=== PATIENT | female | born 1955 | race Caucasian/White ===

== ENCOUNTER → 2017-04-10 | Outpatient (CLI) | payer OTHER ==
--- NOTE | 2017-04-10 14:03 | MR ---
EXAMINATION TYPE: MR shoulder RT wo con DATE OF EXAM: 04/10/2017 COMPARISON: NONE HISTORY: Injury of right rotator cuff TECHNIQUE: Multiplanar, multisequence imaging of the right shoulder is performed without contrast. FINDINGS: Rotator Cuff: There is a partial full-thickness tear of the rotator cuff involving the supraspinatus tendon. Abnormal thickening and increased signal within the rotator cuff compatible with tendinosis. Acromioclavicular Joint: There is some arthropathy change. Distal acromion is downturned shows an ass ociated spur Glenohumeral Joint: Intact Labrum: The labrum appears grossly intact given limitation of non-arthrogram study. Biceps Tendon: The long head of biceps is in normal location within bicipital groove. Some fluid sign al courses along the tendon. Bone marrow signal: Some present within the humeral head. Other: There is a joint effusion, fluid in the subacromial subdeltoid bursa. IMPRESSION: Are sharp Rotator cuff. Correlate for impingement. Additional findings above.
== END | disposition home or self-care (01) ==
LOC: RADMRIMAIN 09:20
PROVIDERS: ATTEND Family Medicine
DX: M75.111 Incomplete rotator cuff tear or rupture of right shoulder, not specified as traumatic (principal); M12.811 Other specific arthropathies, not elsewhere classified, right shoulder

== ENCOUNTER 2020-06-03 03:00 | Inpatient (IN) | payer OTHER ==
--- NOTE | 2020-06-03 03:03 | ED ---
Recheck HPI - General Stated Complaint: Abdominal pain Time Seen by Provider: 06/03/20 03:02 Source: RN notes reviewed, old records reviewed Mode of arrival: EMS Limitations: no limitations - History of Present Illness Initial Comments: This is a 64-year-old female to the ER for evaluation presents today for evaluation of abdominal pain epigastric right upper quadrant abdominal pain patient is accepted in transfer for high likelihood of cholecystitis. Patient pain is mildly improved here in the ER, no fevers. Otherwise no travel history or sick contacts. Patient has no significant history of surgical MD Complaint: abnormal lab, other (Cholecystitis at prior hospital) -: hour(s) Returns Today for: needs IV antibiotics, persistent/worsening pain related to initial visit Symptoms Since Prior Visit: worsening pain (Pain is improving on arrival to ER in transfer) Context: other (Patient diagnoses of high likelihood of cholecystitis in transfer) Associated Symptoms: nausea, abdominal pain Treatments Prior to Arrival: Given Antibiotics on, Given Pain Meds on - Related Data Home Medications Medication Instructions Recorded Confirmed Ascorbic Acid [Vitamin C] 2,000 mg PO DAILY 06/03/20 06/03/20 Cyanocobalamin (Vitamin B-12) 1,000 mcg PO DAILY 06/03/20 06/03/20 [Vitamin B-12] Ergocalciferol [Vitamin D2 (1250 1,250 mcg PO TU 06/03/20 06/03/20 Mcg = 51670 Iu)] Ferrous Sulfate [Iron (65 MG 325 mg PO DAILY 06/03/20 06/03/20 Elemental)] Pedi Multivit No.25/Folic Acid 1,200 mcg PO DAILY 06/03/20 06/03/20 [Flintstones Multivit Chew Tab] buPROPion HCL [Wellbutrin XL] 300 mg PO DAILY 06/03/20 06/03/20 buPROPion XL [Wellbutrin XL] 150 mg PO DAILY 06/03/20 06/03/20 Previous Rx's Medication Instructions Recorded Acetaminophen Tab [Tylenol Tab] 1,000 mg PO Q6HR PRN #30 tablet 06/04/20 Levofloxacin [Levaquin] 750 mg PO DAILY 1 Days #7 tab 06/05/20 metroNIDAZOLE [Flagyl] 500 mg PO QID #28 tab 06/05/20 Allergies Allergy/AdvReac Type Severity Reaction Status Date / Time Penicillins Allergy Rash/Hives Verified 06/03/20 06:42 lactose AdvReac Nausea Verified 06/04/20 12:45 Review of Systems ROS Statement: Those systems with pertinent positive or pertinent negative responses have been documented in the HPI. ROS Other: All systems not noted in ROS Statement are negative. Past Medical History - Past Family History Father Family Medical History: Cancer Additional Family Medical History / Comment(s): Father from [place] lymphoma Mother Family Medical History: Dementia, Diabetes Mellitus Additional Family Medical History / Comment(s): Mother is living General Exam General appearance: alert, in no apparent distress Head exam: Present: atraumatic, normocephalic, normal inspection Eye exam: Present: normal appearance, PERRL, EOMI. Absent: scleral icterus, conjunctival injection, periorbital swelling ENT exam: Present: normal exam, mucous membranes moist Neck exam: Present: normal inspection. Absent: tenderness, meningismus, lymphadenopathy Respiratory exam: Present: normal lung sounds bilaterally. Absent: respiratory distress, wheezes, rales, rhonchi, stridor Cardiovascular Exam: Present: regular rate, normal rhythm, normal heart sounds. Absent: systolic murmur, diastolic murmur, rubs, gallop, clicks GI/Abdominal exam: Present: soft, tenderness (Right upper quadrant), normal desmond l sounds. Absent: distended, guarding, rebound, rigid Extremities exam: Present: normal inspection, full ROM, normal capillary refill. Absent: tenderness, pedal edema, joint swelling, calf tenderness Back exam: Present: normal inspection Neurological exam: Present: alert, oriented X3, CN II-XII intact Psychiatric exam: Present: normal affect, normal mood Skin exam: Present: warm, dry, intact, normal color. Absent: rash Course Vital Signs 06/03/20 06/03/20 06/03/20 03:03 05:00 06:00 Temperature 98.0 F Pulse Rate 74 65 70 Pulse Rate [ Pulse Oximetery ] Respiratory 18 18 18 Rate Blood Pressure 118/66 105/67 100/75 Blood Pressure [Left Arm] O2 Sat by Pulse 99 96 96 Oximetry 06/03/20 06/03/20 06/03/20 07:29 08:55 09:13 Temperature Pulse Rate 73 77 Pulse Rate [ 74 Pulse Oximetery ] Respiratory 18 18 20 Rate Blood Pressure 110/51 109/52 Blood Pressure 103/52 [Left Arm] O2 Sat by Pulse 100 99 99 Oximetry 06/03/20 11:04 Temperature Pulse Rate 74 Pulse Rate [ Pulse Oximetery ] Respiratory 20 Rate Blood Pressure 103/52 Blood Pressure [Left Arm] O2 Sat by Pulse 99 Oximetry - Reevaluation(s) Reevaluation #1: Medical record is reviewed Patient's transfer paperwork is reviewed Patient currently does have pain control Patient informed of results questions answered Care discussed - Consultations Consultation #1: Spoke with Dr. Iglesias agrees to admit the patient Medical Decision Making - Medical Decision Making 64 female DF for evaluation patient Dese for evaluation of abdominal pain right upper quadrant abdominal pain patient does have persistent abdominal pain here in the ER will admit obtain ultrasound in the morning started on IV antibiotics and pain control - Lab Data Result diagrams: 06/05/20 06:17 06/05/20 06:17 - Radiology Data Radiology results: report reviewed (Ultrasound gallbladder positive for cholecystitis), image reviewed Disposition Clinical Impression: Abdominal pain, Acute cholecystitis, Abdominal colic Disposition: ADMITTED IP TO THIS [facility] Condition: Good Is patient prescribed a controlled substance at d/c from ED?: No
[2020-06-03] MEDS ORDERED: ONDANSETRON 4 MG/2 ML VIAL IVP PRN (03:51)
[2020-06-03] MEDS ORDERED: MORPHINE SULFATE 4 MG/ML SYRINGE IV PRN (03:51)
[2020-06-03] MEDS ORDERED: NALOXONE 0.4 MG/ML 1 ML VIAL IV PRN (03:51)
[2020-06-03] MEDS: LEVOFLOXACIN 500MG-D5W PMX 500 MG in DEXTROSE/WATER 1 100ML.BAG IVPB SCH (04:52)
[2020-06-03] MEDS: metroNIDAZOLE-NS PMX 500 MG in SALINE 1 100ML.BAG IVPB SCH ×2 (08:06→15:29)
[2020-06-03] MEDS: PANTOPRAZOLE 40 MG/10 ML VIAL IV SCH (08:53)
--- NOTE | 2020-06-03 08:55 | US ---
EXAMINATION TYPE: US gallbladder DATE OF EXAM: 06/03/2020 COMPARISON: NONE CLINICAL HISTORY: gallstones. RUQ pain. EXAM MEASUREMENTS: Liver Length: 15.4 cm Gallbladder Wall: 0.6 cm CBD: 0.6 cm Right Kidney: 10.1 x 5.3 x 3.9 cm Pancreas: Tail obscured by overlying bowel gas, echogenic in appearance Liver: wnl, heterogenous Gallbladder: Enlarged in size. Thickened wall. Free fluid seen adjacent to liver and GB. Mobile e chogenic foci. Evidence for sonographic Landa's sign: neg CBD: wnl Right Kidney: No hydronephrosis or masses seen IMPRESSION: Correlate for cholecystitis. There could be underlying hepatocellular disease, hepatic st eatosis, there are some limitations to the exam. A [place] level critical message alert has been initiated for Adenike Tolbert MD via the [employer] Critical Results System on 06/03/2020 8:52 AM. This message alert has been sent to Adenike Espinoza MD via the preferences provided by the clinician for the receipt of Radiology Critical Findi ngs. Message ID [id number].
--- NOTE | 2020-06-03 09:18 | P.GSCN ---
<Rola Villela - Last Filed: 06/03/20 09:04> History of Present Illness Consult date: 06/03/20 History of present illness: CHIEF COMPLAINT: Abdominal pain HISTORY OF PRESENT ILLNESS: This is a 64-year-old female with a known past medical history of depression as well as surgical history of a Mitzi-en-Y in 1999 with revision in 2013. Patient reports that she started having right upper quadrant pain around 6 PM last night. The pain radiated to her back and shoulder. She's been having dry heaves and nausea. Denies any fever. Does report that pain is worse after eating. And she has noticed having discomfort after eating on for a while now. She went to [facility] and they villegas sferred her to [facility]. She did have elevated AST of 39 the rest of her LFTs and bilirubin were normal. White count normal. She had a computed tomography scan that showed dilated gallbladder with stones. Abdominal ultrasound shows correlate for cholecystitis. There could be underlying hepatocellular disease, hepatic steatosis. PAST MEDICAL HISTORY: See list. PAST SURGICAL HISTORY: See list. MEDICATIONS: See list. ALLERGIES: See list. SOCIAL HISTORY: No illicit drug use. REVIEW OF SYSTEMS: CONSTITUTIONAL: Denies fever or chills. HEENT: Denies blurred vision, vision changes, or eye pain. Denies hemoptysis ENDOCRINE: Denies heat or cold intolerance. CARDIOVASCULAR: Denies chest pain or pressure. RESPIRATORY: No shortness of breath. GASTROINTESTINAL: Denies abdominal pain. Denies nausea or vomiting. NEURO: Denies history of seizures. PSYCH: No depression or suicidal ideation HEMATOLOGIC: Denies bleeding disorders. LYMPHATIC: The patient denies any lumps and bumps around the neck. GENITOURINARY: Denies any blood in urine or increased urinary frequency. MUSCULOSKELETAL: Denies myalgias. Denies joint swelling. Denies decreased range of motion beyond patients baseline. SKIN: Denies pruitis. Denies rash. PHYSICAL EXAM: VITAL SIGNS: Reviewed GENERAL: Well-developed in no acute distress. HEENT: No sclera icterus. Extraocular movements grossly intact. Moist buccal mucosa. Head is atraumatic, normocephalic. Hears conversational speech. No nasal drainage. NECK: Supple without lymphadenopathy. CHEST: Non-labored respirations and equal bilateral excursions. CARDIOVASCULAR: Palpable 2+ radial pulses. ABDOMEN: Soft. Nondistended. Right upper quadrant tenderness with palpation MUSCULOSKELETAL: No clubbing or cyanosis. NEUROLOGIC: No focal or lateralizing signs. Cranial nerves II through XII grossly intact. PSYCH: Appropriate affect. Alert and oriented to person, place and time. SKIN: Well perfused. Good skin turgor. LABORATORY DATA: Repeat labs for today are pending. WBC 8.49 AST 39 ALT 24 total bili 0.4 and lipase 134 IMAGING: computed tomography scan that showed dilated gallbladder with stones. Abdominal ultrasound shows correlate for cholecystitis. There could be underlying hepatocellular disease, hepatic steatosis. ASSESSMENT: 1. Acute cholecystitis 2. Depression 3. History of Mitzi-en-Y with revision PLAN: -Patient is scheduled for robotic cholecystectomy with Dr. Tolbert -Continue antibiotics -Continue IV fluids -Continue pain medication as needed -Continue antiemetics as needed Thank you for this consultation Physician Welfare Visitor note has been reviewed by physician. Signing provider agrees with the documented findings, assessment, and plan of care. Past Medical History History of Any Multi-Drug Resistant Organisms: None Reported Past Surgical History: Bariatric Surgery Past Psychological History: Depression Smoking Status: Never smoker Past Alcohol Use History: None Reported Past Drug Use History: None Reported Medications and Allergies Home Medications Medication Instructions Recorded Confirmed Type Ascorbic Acid [Vitamin C] 2,000 mg PO DAILY 06/03/20 06/03/20 History Cyanocobalamin (Vitamin B-12) 1,000 mcg PO DAILY 06/03/20 06/03/20 History [Vitamin B-12] Ergocalciferol [Vitamin D2 (1250 1,250 mcg PO TU 06/03/20 06/03/20 History Mcg = 65598 Iu)] Ferrous Sulfate [Feosol] 325 mg PO DAILY 06/03/20 06/03/20 History Pedi Multivit No.25/Folic Acid 1,200 mcg PO DAILY 06/03/20 06/03/20 History [Flintstones Multivit Chew Tab] buPROPion HCL [Wellbutrin XL] 300 mg PO DAILY 06/03/20 06/03/20 History buPROPion XL [Wellbutrin Xl] 150 mg PO DAILY 06/03/20 06/03/20 History Allergies Allergy/AdvReac Type Severity Reaction Status Date / Time Penicillins Allergy Rash/Hives Verified 06/03/20 06:42 Surgical - Exam Vital Signs Temp Pulse Resp BP Pulse Ox 98.0 F 74 18 118/66 99 06/03/20 03:03 06/03/20 03:03 06/03/20 03:03 06/03/20 03:03 06/03/20 03:03 <Adenike Tolbert N - Last Filed: 06/03/20 15:33> History of Present Illness History of present illness: Patient seen and evaluated. Because multiple abdominal surgeries for which surgery itself is high risk due to peritoneal adhesions. Diagnostic laparoscopy with robotic cholecystectomy described. Surgical - Exam Vital Signs Temp Pulse Resp BP Pulse Ox 98.0 F 74 18 118/66 99 06/03/20 03:03 06/03/20 03:03 06/03/20 03:03 06/03/20 03:03 06/03/20 03:03 Results - Labs 06/03/20 09:19 06/03/20 09:19 Abnormal Lab Results - Last 24 Hours (Table) 06/03/20 06/03/20 Range/Units 09:19 09:19 Lymphocytes # 0.7 L (1.0-4.8) k/uL Sodium 133 L (137-145) mmol/L Glucose 112 H (74-99) mg/dL Total Protein 5.5 L (6.3-8.2) g/dL Albumin 3.3 L (3.5-5.0) g/dL Diabetes panel 06/03/20 Range/Units 09:19 Sodium 133 L (137-145) mmol/L Potassium 4.1 (3.5-5.1) mmol/L Chloride 100 (98-107) mmol/L Carbon Dioxide 26 (22-30) mmol/L BUN 16 (7-17) mg/dL Creatinine 0.58 (0.52-1.04) mg/dL Glucose 112 H (74-99) mg/dL Calcium 8.5 (8.4-10.2) mg/dL AST 36 (14-36) U/L ALT 24 (4-34) U/L Alkaline Phosphatase 75 (38-126) U/L Total Protein 5.5 L (6.3-8.2) g/dL Albumin 3.3 L (3.5-5.0) g/dL Calcium panel 06/03/20 Range/Units 09:19 Calcium 8.5 (8.4-10.2) mg/dL Albumin 3.3 L (3.5-5.0) g/dL Pituitary panel 06/03/20 Range/Units 09:19 Sodium 133 L (137-145) mmol/L Potassium 4.1 (3.5-5.1) mmol/L Chloride 100 (98-107) mmol/L Carbon Dioxide 26 (22-30) mmol/L BUN 16 (7-17) mg/dL Creatinine 0.58 (0.52-1.04) mg/dL Glucose 112 H (74-99) mg/dL Calcium 8.5 (8.4-10.2) mg/dL Adrenal panel 06/03/20 Range/Units 09:19 Sodium 133 L (137-145) mmol/L Potassium 4.1 (3.5-5.1) mmol/L Chloride 100 (98-107) mmol/L Carbon Dioxide 26 (22-30) mmol/L BUN 16 (7-17) mg/dL Creatinine 0.58 (0.52-1.04) mg/dL Glucose 112 H (74-99) mg/dL Calcium 8.5 (8.4-10.2) mg/dL Total Bilirubin 0.8 (0.2-1.3) mg/dL AST 36 (14-36) U/L ALT 24 (4-34) U/L Alkaline Phosphatase 75 (38-126) U/L Total Protein 5.5 L (6.3-8.2) g/dL Albumin 3.3 L (3.5-5.0) g/dL
[2020-06-03 10:16] LABS: ALT 24 U/L (4-34); AST 36 U/L (14-36); African American GFR (CKD) >90 (>60 ml/min/1.73 sqM); Albumin 3.3 g/dL (3.5-5.0); Albumin/Globulin Ratio 1.5; Alkaline Phosphatase 75 U/L (38-126); Anion Gap 7 mmol/L; Blood Urea Nitrogen 16 mg/dL (7-17); Calcium 8.5 mg/dL (8.4-10.2); Carbon Dioxide 26 mmol/L (22-30); Chloride 100 mmol/L (98-107); Globulin 2.2 g/dL; Glucose 112 mg/dL (74-99); Non-African American GFR(CKD) >90 (>60 ml/min/1.73 sqM); Potassium 4.1 mmol/L (3.5-5.1); Sodium 133 mmol/L (137-145); Total Bilirubin 0.8 mg/dL (0.2-1.3); Total Protein 5.5 g/dL (6.3-8.2)
[2020-06-03 10:59] LABS: Basophils % (A) 0 %; Eosinophils # (A) 0.1 k/uL (0-0.7); Eosinophils % (A) 1 %; HCT 41.1 % (34.0-46.0); HGB 13.5 gm/dL (11.4-16.0); Lymphocytes # (A) 0.7 k/uL (1.0-4.8); Lymphocytes % (A) 8 %; MCH 31.2 pg (25.0-35.0); MCHC 32.8 g/dL (31.0-37.0); MCV 95.3 fL (80.0-100.0); Mean Platelet Volume 7.1; Monocytes # (A) 0.6 k/uL (0-1.0); Monocytes % (A) 6 %; Neutrophils # (A) 7.7 k/uL (1.3-7.7); Neutrophils % (A) 85 %; Platelet Count 198 k/uL (150-450); RBC 4.32 m/uL (3.80-5.40); RDW 13.5 % (11.5-15.5); WBC 9.1 k/uL (3.8-10.6)
--- NOTE | 2020-06-03 15:34 | P.HPADDEND ---
H&P Addendum H&P Addendum Date: 06/03/20 Patient seen and evaluated. Due multiple abdominal surgeries, cholecystectomy is high risk due to peritoneal adhesions. Diagnostic laparoscopy with robotic cholecystectomy described.
[2020-06-03] MEDS ORDERED: IV FLUID CONTINUATION 1,000 ML IV ONE ×2 (16:24)
[2020-06-03] MEDS ORDERED: ONDANSETRON 4 MG/2 ML VIAL IVP ONE (16:52)
[2020-06-03] MEDS ORDERED: SCOPOLAMINE 1.5MG/72HR PATCH TRANSDERM ONE (16:52)
[2020-06-03] MEDS ORDERED: DEXAMETHASONE SOD PHOSPHATE 4 MG/ML 1 ML VIAL IV ONE (16:52)
[2020-06-03] MEDS ORDERED: HEPARIN SODIUM,PORCINE 5,000 UNIT/ML 1 ML VIAL SQ STA (19:28)
[2020-06-03] MEDS ORDERED: fentaNYL (PF) 50 MCG/ML 2 ML AMP ONE (19:32)
[2020-06-03] MEDS ORDERED: MIDAZOLAM 2 MG/2 ML VIAL ONE (19:32)
[2020-06-03] MEDS ORDERED: ONDANSETRON 4 MG/2 ML VIAL ONE (19:32)
[2020-06-03] MEDS ORDERED: HYDROmorphone (PF) 1 MG/ML ONE (19:32)
[2020-06-03] MEDS ORDERED: SUCCINYLCHOLINE CHLORIDE 100 MG/5 ML SYR IV ONE (19:32)
[2020-06-03] MEDS ORDERED: ROCURONIUM 10 MG/ML (5 ML VIAL) IV ONE (19:32)
[2020-06-03] MEDS ORDERED: PHENYLEPHRINE-0.9% NACL SYG 1,000 MCG/10 ML SYRINGE ONE (19:32)
[2020-06-03] MEDS ORDERED: ceFAZolin 1,000 MG VIAL ONE (19:32)
[2020-06-03] MEDS ORDERED: SODIUM CHLORIDE 0.9% 100 ML BAG ONE (19:32)
[2020-06-03] MEDS ORDERED: NEOSTIGMINE 1 MG/ML 10 ML VIAL ONE (19:32)
[2020-06-03] MEDS ORDERED: LIDOCAINE 1% INJ 10MG/ML (20 ML MDV) ONE (19:32)
[2020-06-03] MEDS ORDERED: PROPOFOL 10 MG/ML 20 ML VIAL IV ONE (19:32)
[2020-06-03] MEDS ORDERED: GLYCOPYRROLATE 0.2 MG/ML 2 ML VIAL ONE (19:32)
[2020-06-03] MEDS ORDERED: INDOCYANINE GREEN 25 MG VIAL IV ONE (19:32)
[2020-06-03] MEDS ORDERED: BUPIVACAIN-EPI 0.5%-1:200,000 30 ML VIAL SQ ONE (19:51)
[2020-06-03] MEDS ORDERED: LACTATED RINGERS 1,000 ML IV ONE (20:56)
--- NOTE | 2020-06-03 22:36 | P.OP ---
Date of Procedure: 06/03/20 Surgeon: Adenike Tolbert Description of Procedure: SURGEON: ADENIKE TOLBERT MD PREOPERATIVE DIAGNOSES: 1. Acute cholecystitis 2. History of multiple abdominal surgeries 3. Status post open gastric bypass 4. Chronic iron deficiency anemia 5. Depressive disorder POSTOPERATIVE DIAGNOSES: 1. Acute hydrops gangrenous cholecystitis 2. Severe diffuse peritoneal adhesions 3. History of multiple abdominal surgeries 4. Status post open gastric bypass 5. Chronic iron deficiency anemia 6. Depressive disorder OPERATION: 1. Robotic-assisted da Rachid Xi laparoscopic lysis of adhesions over 1 hr 2. Robotic-assisted da Rachid Xi laparoscopic subtotal cholecystectomy, multiport with FIREFLY ESTIMATED BLOOD LOSS: 30 mL. SPECIMENS REMOVED: Gallbladder. COMPLICATIONS: None. Pathology: other (Gallbladder, gallbladder fluid) Condition: stable Disposition: floor Operative Findings: 1. Severe midline including right upper quadrant abdominal adhesions from prior surgeries requiring extensive lysis of adhesions 2. Hydrops of the gallbladder including gangrenous acute cholecystitis. 3. Cystic duct fused with common bile duct INDICATIONS: The patient is a 64 year-old female who presents with epigastric right upper quadrant pain and clinical features of acute cholecystitis. Surgical intervention with cholecystectomy was described. Robotic assisted laparoscopic approach was described. Benefits and risks of the procedure including but not limited to bleeding, infection, injury to the biliary tree was reviewed. Informed consent was obtained. DESCRIPTION OF PROCEDURE: Patient was brought to the operating room, placed in supine position. After general induction, the abdomen had been prepped and draped in standard sterile fashion. The robotic da Rachid XI system was primed. After a timeout protocol was performed, the patient had been prepped and draped in standard sterile fashion. The patient was injected with indocyanine green including with Decadron and Benadryl. A 5 mm 0 degrees laparoscopic trocar entry was performed along the left upper quadrant. The abdomen insufflated to 15 mmHg pressure which was tolerated well. Diagnostic laparoscopy demonstrated no injury to bowel viscera or mesentery. Severe intra-abdominal adhesions involving the midline and bilateral upper abdomens were identified. The liver surface was unremarkable. A moderately distended gallbladder was identified adding complexity to the case. Next, two 8 mm robotic ports were placed along the right upper abdomen. The camera 8-mm port was maintained along the epigastrium. Another 8 mm port was placed along the left lower abdomen. Please note that the ports were placed at least 10 to 15 cm away from the target anatomy of the gallbladder. The robot was docked along the left lateral abdomen. The patient was repositioned in reverse Trendelenburg position at 21 with the right side up 7. Using a grasper for arm 3, a grasper for arm 4, including hook cautery for arm 1, the robotic system was docked and primed as described. Instruments were interchanged by the ophthalmic surgical assistant including hook cautery, Bovie cautery and clip appliers. Additional instruments including vessel sealer, robotic suction modeling teacher, robotic stapler were made available. I had sat at the console. Attention was brought to the severity of adhesions of the greater omentum to the abdominal wall involving the midline, bilateral upper abdomen. Vessel sealer including hook cautery was used to lyse adhesions over 1 hour. The gallbladder was reflected towards the dome of the liver. The gallbladder was moderately distended adding complexity to the case. Edema was found along the cystic triangle including infundibulum. Initial dissection was performed on the gallbladder infundibulum using indocyanine green to illuminate the cystic duct and common bile duct. The entire gallbladder was not opacified consistent with acute cholecystitis. Due to moderate distention of the infundibulum, dome down technique was performed for removing the gallbladder from the hepatic fossa starting from the fundus towards the infundibulum. Using a sponge, the liver was reflected towards the diaphragm and starting at the gallbladder fundus, hook cautery was used between the liver and the gallbladder. As the gallbladder was dissected from the hepatic fossa, hemostasis was checked using vessel sealer along the posterior gallbladder including hemostatic agents of Surgicel and fibrillar. Next, indocyanine green was used to confirm the common bile duct as well as cystic duct. The entire gallbladder was without contrast consistent with acute cholecystitis. The infundibulum was retracted laterally revealing that the cystic structures was adherent to the common bile duct. A subtotal cholecystectomy was proposed to avoid injury to the common bile duct. The left upper quadrant trocar was exchanged for a 12 mm robotic trocar. FIREFLY was used to identify the common bile duct. Robotic 45 mm green staple loads were fired across the infundibulum as the cystic duct and cystic structures were moderately edematous. Bleeding along the liver bed was controlled with hemostatic agents. Indocyanine green was used to confirm no bile leak from the staple line. Sponges were removed from the abdomen. The robot was undocked. I re-scrubbed into the case. A 10 mm Endo Catch bag was used to remove the gallbladder in total via the left upper quadrant incision after widening the incision. The specimen was removed from the abdominal cavity. Ja Milligan and 0 Vicryl was used to close the fascial defect of the left upper quadrant. All pneumoperitoneum instruments were evacuated from the abdominal cavity. The incisions were cleansed using dilute hydrogen peroxide. The incisions were reapproximated using 4-0 Monocryl in an interrupted subcuticular fashion. Please note along the trocar sites, local anesthetic was placed as a field block prior to insertion of all instruments. Liquid glue was applied to the skin. Optifoam was placed along the left upper quadrant. At the end of the procedure needle, sponge, and instrument count had been verified correct by the surgical assistant certified. The patient was transferred to postanesthesia care unit in stable condition. Intraoperative findings were discussed with her over the telephone including gangrenous cholecystitis.
[2020-06-04] MEDS: ACETAMINOPHEN TAB 325 MG TAB PO SCH ×2 (00:04→05:11)
--- NOTE | 2020-06-04 00:06 | P.HPIM ---
History of Present Illness H&P Date: 06/03/20 Chief Complaint: Abdominal pain History of presenting complaint: This is a 64-year-old patient of Dr. Beach, who presented to [facility]. She is complaining of right upper quadrant pain for 6 hours. Has a known history of anxiety and Mitzi-en-Y gastric bypass surgery. Computed tomography scan done that did show dilated gallbladder with gallstones. She was transferred down here. There is no reported history of fever. Earlier today patient was taken out of the operating room by Dr. Salgado was found to have a gangrenous acute cholecystitis with severe peritonism and lesions. This was done robotically. With a subtotal cholecystectomy. Postprocedure patient is somewhat tired and drowsy. Care only given a limited history. Review of systems: Cannot obtain as patient other drowsy Past medical history to include: Depression, PTSD, anxiety, gastric Mitzi-en-Y bariatric surgery Social history: This the . No smoking and no alcohol. Physical examination: VITAL SIGNS: 97.4, 83, 18, 144/73, 96% on 8 L GENERAL: BMI 26.8, laying in bed, sleepy but arousable. EYES: Pupils equal. Conjunctiva normal. HEENT: External appearance of nose and ears normal, oral cavity grossly normal. NECK: JVD not raised; masses not palpable. HEART: First and second heart sounds are normal; no edema. LUNGS: Respiratory rate normal; clear to auscultation. ABDOMEN: Soft, mild tenderness, incision sites, liver spleen not palpable, no masses palpable. PSYCH: Sleepy could not be assessedl. NEUROLOGICAL: Cranial nerves grossly intact; no facial asymmetry, power and sensation grossly intact. LYMPHATICS: No lymph nodes palpable in the axilla and neck INVESTIGATIONS, reviewed in the clinical context: From [facility]: WBC 8.4 hemoglobin 14 platelets 232 sodium 132 potassium 4.4 creatinine 0.7 Computed tomography scan of the abdomen showed dilated gallbladder with gallstones Assessment and plan: -Acute gangrenous cholecystitis followed by subtotal cholecystectomy. Patient is on IV Levaquin and IV Flagyl. -History of gastric Mitzi-en-Y bypass surgery -Anxiety depression not otherwise specified, continue with Wellbutrin -Hypoalbuminemia-reactive -Mild hyponatremia, follow labs Continued antibiotics. Patient be started low-fat diet by Dr. Salgado. Past Medical History History of Any Multi-Drug Resistant Organisms: None Reported Past Surgical History: Bariatric Surgery Past Psychological History: Depression Smoking Status: Never smoker Past Alcohol Use History: None Reported Past Drug Use History: None Reported - Past Family History Father Family Medical History: Cancer Additional Family Medical History / Comment(s): Father from [place] lymphoma Mother Family Medical History: Dementia, Diabetes Mellitus Additional Family Medical History / Comment(s): Mother is living Medications and Allergies Home Medications Medication Instructions Recorded Confirmed Type Ascorbic Acid [Vitamin C] 2,000 mg PO DAILY 06/03/20 06/03/20 History Cyanocobalamin (Vitamin B-12) 1,000 mcg PO DAILY 06/03/20 06/03/20 History [Vitamin B-12] Ergocalciferol [Vitamin D2 (1250 1,250 mcg PO TU 06/03/20 06/03/20 History Mcg = 31664 Iu)] Ferrous Sulfate [Feosol] 325 mg PO DAILY 06/03/20 06/03/20 History Pedi Multivit No.25/Folic Acid 1,200 mcg PO DAILY 06/03/20 06/03/20 History [Flintstones Multivit Chew Tab] buPROPion HCL [Wellbutrin XL] 300 mg PO DAILY 06/03/20 06/03/20 History buPROPion XL [Wellbutrin Xl] 150 mg PO DAILY 06/03/20 06/03/20 History Allergies Allergy/AdvReac Type Severity Reaction Status Date / Time Penicillins Allergy Rash/Hives Verified 06/03/20 06:42 Physical Exam Vitals: Vital Signs Temp Pulse Resp BP Pulse Ox 06/03/20 08:55 77 18 109/52 99 06/03/20 07:29 73 18 110/51 100 06/03/20 06:00 70 18 100/75 96 06/03/20 05:00 65 18 105/67 96 06/03/20 03:03 98.0 F 74 18 118/66 99 Intake and Output 06/02/20 06/03/20 06/03/20 22:59 06:59 14:59 Other: Weight 70.76 kg Results CBC & Chem 7: 06/03/20 09:19 06/03/20 09:19
[2020-06-04] MEDS: metroNIDAZOLE-NS PMX 500 MG in SALINE 1 100ML.BAG IVPB SCH ×4 (00:07→23:59)
[2020-06-04] MEDS: LEVOFLOXACIN 500MG-D5W PMX 500 MG in DEXTROSE/WATER 1 100ML.BAG IVPB SCH (04:28)
[2020-06-04] MEDS: ACETAMINOPHEN TAB 500 MG TAB PO SCH ×4 (05:19→23:59)
[2020-06-04 06:53] LABS: INR 0.9 (<1.2); Prothrombin Time 10.1 sec (9.0-12.0)
[2020-06-04 07:04] LABS: Basophils % (A) 0 %; Eosinophils % (A) 0 %; HCT 43.8 % (34.0-46.0); HGB 14.3 gm/dL (11.4-16.0); Lymphocytes # (A) 0.4 k/uL (1.0-4.8); Lymphocytes % (A) 5 %; MCH 31.5 pg (25.0-35.0); MCHC 32.6 g/dL (31.0-37.0); MCV 96.6 fL (80.0-100.0); Monocytes # (A) 0.3 k/uL (0-1.0); Monocytes % (A) 4 %; Neutrophils # (A) 6.6 k/uL (1.3-7.7); Neutrophils % (A) 90 %; Platelet Count 199 k/uL (150-450); RBC 4.53 m/uL (3.80-5.40); RDW 13.5 % (11.5-15.5); WBC 7.4 k/uL (3.8-10.6)
[2020-06-04 07:07] LABS: ALT 44 U/L (4-34); AST 60 U/L (14-36); African American GFR (CKD) >90 (>60 ml/min/1.73 sqM); Albumin 2.9 g/dL (3.5-5.0); Albumin/Globulin Ratio 1.4; Alkaline Phosphatase 60 U/L (38-126); Anion Gap 4 mmol/L; Blood Urea Nitrogen 12 mg/dL (7-17); Calcium 8.3 mg/dL (8.4-10.2); Carbon Dioxide 29 mmol/L (22-30); Chloride 103 mmol/L (98-107); Globulin 2.1 g/dL; Glucose 133 mg/dL (74-99); Lipase 36 U/L (23-300); Magnesium 1.8 mg/dL (1.6-2.3); Non-African American GFR(CKD) >90 (>60 ml/min/1.73 sqM); Phosphorus 2.7 mg/dL (2.5-4.5); Potassium 4.5 mmol/L (3.5-5.1); Sodium 136 mmol/L (137-145); Total Bilirubin 0.7 mg/dL (0.2-1.3)
[2020-06-04] MEDS: buPROPion XL 150 MG TAB.ER.24H PO SCH (07:55)
[2020-06-04] MEDS: PANTOPRAZOLE 40 MG/10 ML VIAL IV SCH (07:55)
[2020-06-04] MEDS: ENOXAPARIN 30 MG/0.3 ML SYRINGE SQ SCH (07:55)
[2020-06-04] MEDS: buPROPion XL 300 MG TAB.ER.24H PO SCH (07:55)
--- NOTE | 2020-06-04 11:05 | P.PN ---
Subjective Progress Note Date: 06/04/20 She feels great. Her right upper quadrant abdominal pain is resolved. Images from surgery reviewed including diagram of the gallbladder. Her pain is well controlled. WBC and labs reviewed. Agreeable with discharge following dose of antibiotics this afternoon. Follow up next week. Discharge instructions re viewed. Non-narcotic pain management described. Avoidance of oral NSAIDs reviewed for history of gastric bypass. Objective - Vital Signs Vital signs: Vital Signs Temp 98.9 F 06/04/20 05:00 Pulse 85 06/04/20 05:00 Resp 18 06/04/20 05:00 BP 120/76 06/04/20 05:00 Pulse Ox 96 06/04/20 05:00 Intake & Output 06/03/20 06/04/20 06/04/20 18:59 06:59 18:59 Intake Total 50 1600 Output Total 440 Balance 50 1160 Weight 70.76 kg Intake: IV 50 1400 Intake, IV Titration 200 Amount Levofloxacin 500Mg-D5w 100 Pmx 500 mg In Dextrose/ Water 1 100ml.bag @ 100 mls/hr IVPB Q24H [facility] Rx#: [id number] metroNIDAZOLE-NS PMX 500 100 mg In Saline 1 100ml.bag @ 100 mls/hr IVPB Q8HR [facility] Rx#:[id number] Oral 0 Output: Urine 410 Straight 410 Estimated Blood Loss 30 Other: Voiding Method Toilet # Voids 2 - Labs CBC & Chem 7: 06/04/20 05:57 06/04/20 05:57 Labs: Abnormal Lab Results - Last 24 Hours (Table) 06/04/20 06/04/20 Range/Units 05:57 05:57 Lymphocytes # 0.4 L (1.0-4.8) k/uL Sodium 136 L (137-145) mmol/L Glucose 133 H (74-99) mg/dL Calcium 8.3 L (8.4-10.2) mg/dL AST 60 H (14-36) U/L ALT 44 H (4-34) U/L Total Protein 5.0 L (6.3-8.2) g/dL Albumin 2.9 L (3.5-5.0) g/dL
[2020-06-04] MEDS ORDERED: SODIUM CHLORIDE 0.9% 1,000 ML IV ONE (14:02)
--- NOTE | 2020-06-04 22:47 | P.PN ---
Progress Note - Text Progress Note Date: 06/04/20 Chief Complaint: Abdominal pain History of presenting complaint: This is a 64-year-old patient of Dr. Beach, who presented to [facility]. She is complaining of right upper quadrant pain for 6 hours. Has a known history of anxiety and Mitzi-en-Y gastric bypass surgery. Computed tomography scan done that did show dilated gallbladder with gallstones. She was transferred down here. There is no reported history of fever. Earlier today patient was taken out of the operating room by Dr. Salgado was found to have a gangrenous acute cholecystitis with severe peritonism and lesions. This was done robotically. With a subtotal cholecystectomy. Postprocedure patient is somewhat tired and drowsy. only given a limited history. Today-saw the patient this morning. More awake. He took some liquids. Tired Review of systems: Was done for constitutional, cardiovascular, GI, pulmonary. relevant finding as above Active Medications Acetaminophen (Acetaminophen Tab 500 Mg Tab) 1,000 mg PO Q6HR [facility] Last Admin: 06/04/20 18:15 Dose: 1,000 mg Documented by: Bupropion HCl (Bupropion Xl 300 Mg Tab.Er.24h) 300 mg PO DAILY [facility] Last Admin: 06/04/20 07:55 Dose: 300 mg Documented by: Bupropion HCl (Bupropion Xl 150 Mg Tab.Er.24h) 150 mg PO DAILY [facility] Last Admin: 06/04/20 07:55 Dose: 150 mg Documented by: Enoxaparin Sodium (Enoxaparin 30 Mg/0.3 Ml Syringe) 30 mg SQ DAILY [facility] Last Admin: 06/04/20 07:55 Dose: 30 mg Documented by: Levofloxacin 500 mg/ IV (Solution) 100 mls @ 100 mls/hr IVPB Q24H [facility] Last Admin: 06/04/20 04:28 Dose: 100 mls/hr Documented by: Metronidazole 500 mg/ IV (Solution) 100 mls @ 100 mls/hr IVPB Q8HR [facility] Last Admin: 06/04/20 15:42 Dose: 100 mls/hr Documented by: Morphine Sulfate (Morphine Sulfate 4 Mg/Ml Syringe) 4 mg IV Q4HR PRN PRN Reason: Severe Pain Last Admin: 06/03/20 08:51 Dose: 4 mg Documented by: Naloxone HCl (Naloxone 0.4 Mg/Ml 1 Ml Vial) 0.2 mg IV Q2M PRN PRN Reason: Opioid Reversal Ondansetron HCl (Ondansetron 4 Mg/2 Ml Vial) 4 mg IVP Q8HR PRN PRN Reason: Nausea And Vomiting Last Admin: 06/03/20 06:01 Dose: 4 mg Documented by: Pantoprazole Sodium (Pantoprazole 40 Mg/10 Ml Vial) 40 mg IV DAILY [facility] Last Admin: 06/04/20 07:55 Dose: 40 mg Documented by: Past medical history to include: Depression, PTSD, anxiety, gastric Mitzi-en-Y bariatric surgery Social history: This the . No smoking and no alcohol. Physical examination: VITAL SIGNS: 98.7, 96, 16, 97/ 54, 95% room air GENERAL: Propped up in bed, awake EYES: Pupils equal. Conjunctiva normal. HEENT: External appearance of nose and ears normal, oral cavity grossly normal. NECK: JVD not raised; masses not palpable. HEART: First and second heart sounds are normal; no edema. LUNGS: Respiratory rate normal; clear to auscultation. ABDOMEN: Soft, mild tenderness, , liver spleen not palpable, no masses palpable. PSYCH: AO 3, mood and affect normal INVESTIGATIONS, reviewed in the clinical context: June 04: WBC 7.4 hemoglobin 14.3 potassium 4.5 crit 0.7 From [facility]: WBC 8.4 hemoglobin 14 platelets 232 sodium 132 potassium 4.4 creatinine 0.7 Computed tomography scan of the abdomen showed dilated gallbladder with gallstones Assessment and plan: -Acute gangrenous cholecystitis followed by subtotal cholecystectomy. Patient is on IV Levaquin and IV Flagyl. -History of gastric Mitzi-en-Y bypass surgery -Anxiety depression not otherwise specified, continue with Wellbutrin -Hypoalbuminemia-reactive -Mild hyponatremia, follow labs Continued antibiotics. Oral intake encouraged. Diet has been advanced to low- fat by Dr. Salgado. Spoke to the nurse of the patient sit up in a chair and increase activity as tolerated.
[2020-06-05] MEDS: LEVOFLOXACIN 500MG-D5W PMX 500 MG in DEXTROSE/WATER 1 100ML.BAG IVPB SCH (04:02)
[2020-06-05] MEDS: ACETAMINOPHEN TAB 500 MG TAB PO SCH ×3 (06:35→12:16)
[2020-06-05 06:42] LABS: Basophils % (A) 0 %; Eosinophils # (A) 0.1 k/uL (0-0.7); Eosinophils % (A) 1 %; HCT 36.8 % (34.0-46.0); HGB 12.5 gm/dL (11.4-16.0); Lymphocytes # (A) 0.5 k/uL (1.0-4.8); Lymphocytes % (A) 6 %; MCHC 34.1 g/dL (31.0-37.0); MCV 96.8 fL (80.0-100.0); Mean Platelet Volume 6.9; Monocytes # (A) 0.2 k/uL (0-1.0); Monocytes % (A) 2 %; Neutrophils # (A) 7.1 k/uL (1.3-7.7); Neutrophils % (A) 90 %; Platelet Count 182 k/uL (150-450); RDW 13.5 % (11.5-15.5); WBC 7.9 k/uL (3.8-10.6)
[2020-06-05 06:51] LABS: ALT 40 U/L (4-34); AST 49 U/L (14-36); African American GFR (CKD) >90 (>60 ml/min/1.73 sqM); Albumin 2.5 g/dL (3.5-5.0); Alkaline Phosphatase 57 U/L (38-126); Anion Gap 3 mmol/L; Blood Urea Nitrogen 9 mg/dL (7-17); Calcium 8.1 mg/dL (8.4-10.2); Carbon Dioxide 25 mmol/L (22-30); Chloride 106 mmol/L (98-107); Glucose 92 mg/dL (74-99); Non-African American GFR(CKD) >90 (>60 ml/min/1.73 sqM); Potassium 3.8 mmol/L (3.5-5.1); Sodium 134 mmol/L (137-145); Total Bilirubin 0.6 mg/dL (0.2-1.3); Total Protein 4.5 g/dL (6.3-8.2)
[2020-06-05] MEDS: traMADol 50 MG TAB PO PRN ×2 (07:01→12:10)
[2020-06-05 08:30] VITALS: PULSE 88; RESP 16
[2020-06-05] MEDS: buPROPion XL 150 MG TAB.ER.24H PO SCH (08:32)
[2020-06-05] MEDS: buPROPion XL 300 MG TAB.ER.24H PO SCH (08:32)
[2020-06-05] MEDS: metroNIDAZOLE-NS PMX 500 MG in SALINE 1 100ML.BAG IVPB SCH (08:33)
[2020-06-05] MEDS: ENOXAPARIN 30 MG/0.3 ML SYRINGE SQ SCH (08:34)
--- NOTE | 2020-06-05 11:21 | P.PN ---
Progress Note - Text Progress Note Date: 06/05/20 Patiently worked well. She feels no significant pain. On exam vitals are stable. Abdomen soft. Incisions clean and intact. Status post laparoscopic ostectomy. Patiently discharged home today.
[2020-06-05 11:47] VITALS: BP 98/62; TEMP 98.2
--- NOTE | 2020-06-06 23:16 | P.DS ---
Providers Date of admission: 06/03/20 03:53 Expected date of discharge: 06/05/20 Attending physician: Sharath Iglesias Consults: 06/03/20 03:52 Consult Physician Routine Consulting Provider: Adenike Tolbert Consult Reason/Comments: choleCOlic Do you want consulting provider notified?: Yes Primary care physician: Brandon Barboza [facility] Course: Chief Complaint: Abdominal pain History of presenting complaint: This is a 64-year-old patient of Dr. Beach, who presented to [facility]. She is complaining of right upper quadrant pain for 6 hours. Has a known history of anxiety and Mitzi-en-Y gastric bypass surgery. Computed tomography scan done that did show dilated gallbladder with gallstones. She was transferred down here. There is no reported history of fever. Earlier today patient was taken out of the operating room by Dr. Salgado was found to have a gangrenous acute cholecystitis with severe peritonism and lesions. This was done robotically. With a subtotal cholecystectomy. Postprocedure patient is somewhat tired and drowsy. only given a limited history. Today-doing better. Tolerating diet. Cleared by surgery. Pain well controlled. She up in the hallway. No nausea vomiting. Discussed with the patient. Questions answered. Consultation: Dr. Salgado from general surgery Past medical history to include: Depression, PTSD, anxiety, gastric Mitzi-en-Y bariatric surgery Social history: This the . No smoking and no alcohol. Physical examination: VITAL SIGNS: 98.3, 88, 16, 96 x 62, 97% room air GENERAL: Propped up in bed, comfortable EYES: Pupils equal. Conjunctiva normal. HEENT: External appearance of nose and ears normal, oral cavity grossly normal. NECK: JVD not raised; masses not palpable. HEART: First and second heart sounds are normal; no edema. LUNGS: Respiratory rate normal; clear to auscultation. ABDOMEN: Soft, mild tenderness, , liver spleen not palpable, no masses palpable. Bowel sounds present PSYCH: AO 3, mood and affect normal INVESTIGATIONS, reviewed in the clinical context: June 05: White count 7.9 hemoglobin 12.5 potassium 3.8 creatinine 0.63 June 04: WBC 7.4 hemoglobin 14.3 potassium 4.5 crit 0.7 From [facility]: WBC 8.4 hemoglobin 14 platelets 232 sodium 132 potassium 4.4 creatinine 0.7 Computed tomography scan of the abdomen showed dilated gallbladder with gallstones Assessment and plan: -Acute gangrenous cholecystitis followed by subtotal cholecystectomy. Complete course of Levaquin and Flagyl -History of gastric Mitzi-en-Y bypass surgery -Anxiety depression not otherwise specified, continue with Wellbutrin -Hypoalbuminemia-reactive -Mild hyponatremia, follow labs Disposition: Home Diet soft bland as tolerated Patient Condition at Discharge: Good Plan - Discharge Summary Discharge Rx Participant: No New Discharge Prescriptions: New Acetaminophen Tab [Tylenol Tab] 1,000 mg PO Q6HR PRN #30 tablet PRN Reason: Pain metroNIDAZOLE [Flagyl] 500 mg PO QID #28 tab Levofloxacin [Levaquin] 750 mg PO DAILY 1 Days #7 tab Continue Pedi Multivit No.25/Folic Acid [Flintstones Multivit Chew Tab] 1,200 mcg PO DAILY Ferrous Sulfate [Iron (65 MG Elemental)] 325 mg PO DAILY buPROPion XL [Wellbutrin XL] 150 mg PO DAILY buPROPion HCL [Wellbutrin XL] 300 mg PO DAILY Ergocalciferol [Vitamin D2 (1250 Mcg = 53804 Iu)] 1,250 mcg PO TU Ascorbic Acid [Vitamin C] 2,000 mg PO DAILY Cyanocobalamin (Vitamin B-12) [Vitamin B-12] 1,000 mcg PO DAILY Discharge Medication List Ascorbic Acid [Vitamin C] 2,000 mg PO DAILY 06/03/20 [History] Cyanocobalamin (Vitamin B-12) [Vitamin B-12] 1,000 mcg PO DAILY 06/03/20 [History] Ergocalciferol [Vitamin D2 (1250 Mcg = 35321 Iu)] 1,250 mcg PO TU 06/03/20 [History] Ferrous Sulfate [Iron (65 MG Elemental)] 325 mg PO DAILY 06/03/20 [History] Pedi Multivit No.25/Folic Acid [Flintstones Multivit Chew Tab] 1,200 mcg PO DAILY 06/03/20 [History] buPROPion HCL [Wellbutrin XL] 300 mg PO DAILY 06/03/20 [History] buPROPion XL [Wellbutrin XL] 150 mg PO DAILY 06/03/20 [History] Acetaminophen Tab [Tylenol Tab] 1,000 mg PO Q6HR PRN #30 tablet 06/04/20 [Rx] Levofloxacin [Levaquin] 750 mg PO DAILY 1 Days #7 tab 06/05/20 [Rx] metroNIDAZOLE [Flagyl] 500 mg PO QID #28 tab 06/05/20 [Rx] Follow up Appointment(s)/Referral(s): Adenike Tolbert MD [STAFF PHYSICIAN] - 06/08/20 (Call the office to establish an appointment time to be seen on June 08, 2020.) Brandon Beach MD [Primary Care Provider] - 1-2 days (call Dr Beach's office on Sunday to make a follow up appointment to be seen within a week.) Patient Instructions/Handouts: Low Fat Diet (DC), Laparoscopic Cholecystectomy (DC) Activity/Diet/Wound Care/Special Instructions: DO NOT REMOVE DRESSING. No lifting over 10 pounds in 2 weeks until June 17. May shower. No bath tub soaks for two weeks until June 17. Diet as tolerated. Use Tylenol scheduled for the next 24-48 hours for best pain relief. Use ice along incisions for today to prevent swelling. For today, avoid high fat foods Call Dr Tolbert if you develop a fever over 100.5, increase in pain, vomiting, bleeding from your incisions or any other concerning symptoms. Call Dr Tolbert's office for an appointment time. Discharge Disposition: HOME SELF-CARE
== END 2020-06-05 12:37 | disposition home or self-care (01) | DRG 418 ==
LOC: EC 03:00 → 5NMEDONC 03:53 → 6PED 06-04 09:31
PROVIDERS: ADMIT Hospitalist; ATTEND Hospitalist
PROC: 0DNW4ZZ Release Peritoneum, Percutaneous Endoscopic Approach (ICD-10-PCS; 2020-06-03)
PROC: 8E0W4CZ Robotic Assisted Procedure of Trunk Region, Percutaneous Endoscopic Approach (ICD-10-PCS; 2020-06-03)
PROC: 0FT44ZZ Resection of Gallbladder, Percutaneous Endoscopic Approach (ICD-10-PCS; principal; 2020-06-03 12:25)
DX: K80.00 Calculus of gallbladder with acute cholecystitis without obstruction (principal); E87.1 Hypo-osmolality and hyponatremia; K82.1 Hydrops of gallbladder; K82.A1 Gangrene of gallbladder in cholecystitis; E88.09 Other disorders of plasma-protein metabolism, not elsewhere classified; K76.0 Fatty (change of) liver, not elsewhere classified; Z20.822 Contact with and (suspected) exposure to COVID-19; F41.9 Anxiety disorder, unspecified; F32.9 Major depressive disorder, single episode, unspecified; F43.10 Post-traumatic stress disorder, unspecified; K66.0 Peritoneal adhesions (postprocedural) (postinfection); Z79.899 Other long term (current) drug therapy; Z88.0 Allergy status to penicillin; Z98.84 Bariatric surgery status; Z80.7 Family history of other malignant neoplasms of lymphoid, hematopoietic and related tissues; Z83.3 Family history of diabetes mellitus; Z82.0 Family history of epilepsy and other diseases of the nervous system
CPT/HCPCS: 76705; 80053; 83690; 83735; 84100; 85025; 85610; 87070; 87075; 87205; 87635; 88304; 96374; 96375; 99285

== ENCOUNTER 2023-12-25 12:49 | Observation (INO) | payer MEDICARE, OTHER ==
--- NOTE | 2023-12-25 14:48 | ED ---
General Adult HPI - General Chief complaint: Abdominal Pain Stated complaint: cholecystitis Time Seen by Provider: 12/25/23 13:00 Source: patient, RN notes reviewed, old records reviewed Mode of arrival: EMS Limitations: no limitations - History of Present Illness Initial comments: This is a 68-year-old female who presents to the emergency department co mplaining of 5 hours of right upper quadrant abdominal pain. Patient went to [facility] where they diagnosed her with acute cholecystitis. Patient did have a CAT scan and ultrasound there. The ER doctor at that facility called myself and gave me the history and lab results over the phone. I went and saw the patient she stated that the pain in the right upper quadrant radiated to her back and it made her nauseous. - Related Data Home Medications Medication Instructions Recorded Confirmed Ascorbic Acid [Vitamin C] 2,000 mg PO DAILY 06/03/20 06/03/20 Cyanocobalamin (Vitamin B-12) 1,000 mcg PO DAILY 06/03/20 06/03/20 [Vitamin B-12] Ergocalciferol [Vitamin D2 (1250 1,250 mcg PO TU 06/03/20 06/03/20 Mcg = 35796 Iu)] Ferrous Sulfate [Iron (65 MG 325 mg PO DAILY 06/03/20 06/03/20 Elemental)] Pedi Multivit No.25/Folic Acid 1,200 mcg PO DAILY 06/03/20 06/03/20 [Flintstones Multivit Chew Tab] buPROPion HCL [Wellbutrin XL] 300 mg PO DAILY 06/03/20 06/03/20 buPROPion XL [Wellbutrin XL] 150 mg PO DAILY 06/03/20 06/03/20 Previous Rx's Medication Instructions Recorded Acetaminophen Tab [Tylenol Tab] 1,000 mg PO Q6HR PRN #30 tablet 06/04/20 levoFLOXacin [Levaquin] 750 mg PO DAILY 1 Days #7 tab 06/05/20 metroNIDAZOLE [Flagyl] 500 mg PO QID #28 tab 06/05/20 Allergies Allergy/AdvReac Type Severity Reaction Status Date / Time Penicillins Allergy Rash/Hives Verified 12/25/23 13:00 lactose AdvReac Nausea Verified 12/25/23 13:00 Review of Systems ROS Statement: Those systems with pertinent positive or pertinent negative responses have been documented in the HPI. ROS Other: All systems not noted in ROS Statement are negative. Past Medical History Past Medical History: No Reported History History of Any Multi-Drug Resistant Organisms: None Reported Past Surgical History: Bariatric Surgery, Cholecystectomy Additional Past Surgical History / Comment(s): EGD, Mitzi en Y, abdominoplasty, bilateral breast augmentations/implants with difficulty healing/additional surgery to repair, bilateral arm plastic surgery, L foot bunionectomy, L arm fracture with plate Past Anesthesia/Blood Transfusion Reactions: Motion Sickness Additional Past Anesthesia/Blood Transfusion Reaction / Comment(s): Pt has clausterphobia. Past Psychological History: Depression Smoking Status: Never smoker Past Alcohol Use History: None Reported Past Drug Use History: None Reported - Past Family History Father Family Medical History: Cancer Additional Family Medical History / Comment(s): Father from [place] lymphoma Mother Family Medical History: Dementia, Diabetes Mellitus Additional Family Medical History / Comment(s): Mother is living General Exam - General Exam Comments Initial Comments: GENERAL: Patient is well-developed and well-nourished. Patient is nontoxic and well- hydrated and is in mild distress. ENT: Neck is soft and supple. No significant lymphadenopathy is noted. Oropharynx is clear. Moist mucous membranes. Neck has full range of motion without eliciting any pain. EYES: The sclera were anicteric and conjunctiva were pink and moist. Extraocular movements were intact and pupils were equal round and reactive to light. Eyelids were unremarkable. PULMONARY: Unlabored respirations. Good breath sounds bilaterally. No audible rales rhonchi or wheezing was noted. CARDIOVASCULAR: There is a regular rate and rhythm without any murmurs gallops or rubs. ABDOMEN: Soft and nontender with normal bowel sounds. SKIN: Skin is clear with no lesions or rashes and otherwise unremarkable. NEUROLOGIC: Patient is alert and oriented x3. Cranial nerves II through XII are grossly intact. Motor and sensory are also intact. Normal speech, volume and content. Symmetrical smile. MUSCULOSKELETAL: Normal extremities with adequate strength and full range of motion. LYMPHATICS: No significant lymphadenopathy is noted PSYCHIATRIC: Normal psychiatric evaluation. Limitations: no limitations Course Vital Signs 12/25/23 12:56 Temperature 98 F Pulse Rate 77 Respiratory 18 Rate Blood Pressure 110/68 O2 Sat by Pulse 98 Oximetry Medical Decision Making - Medical Decision Making Was pt. sent in by a medical professional or institution (Dr., PA, [employer], urgent care, hospital, or penitentiary...) When possible be specific @ -[facility] ER Did you speak to anyone other than the patient for history (EMS, parent, family, police, friend...)? What history was obtained from this source @ -I spoke with the ER physician and he gave me the history on the patient as well as any labs and radiological findings that he did. Did you review nursing and triage notes (agree or disagree)? Why? @ -I reviewed and agree with nursing and triage notes Were old charts reviewed (outside hosp., previous admission, EMS record, old EKG, old radiological studies, urgent care reports/EKG's, penitentiary records)? Report findings @ -I reviewed the patient's CT scan ultrasound and lab work from [facility] Differential Diagnosis? @ -Differential Abdominal Pain Women: Appendicitis, Cholecystitis, diverticulosis, ischemic bowel, pancreatitis, hepatitis, UTI, gastroenteritis, AAA, incarcerated hernia, bowel obstruction, constipation, inflammatory bowel, hepatitis, peptic ulcer disease, splenic infarction, perforated viscus, vulvitis, ovarian torsion, PID, kidney stone, placenta abruption, this is not meant to be an all-inclusive list EKG interpreted by me (3pts min.). @ -As above X-rays interpreted by me (1pt min.). @ -None done CT interpreted by me (1pt min.). @ -None done U/S interpreted by me (1pt. min.). @ -None done What testing was considered but not performed or refused? (CT, X-rays, U/S, labs)? Why? @ -None What meds were considered but not given or refused? Why? @ -None Did you discuss the management of the patient with other professionals (professionals i.e. LUIS F Lang, [employer], lab, RT, psych nurse, social services assistant, demand planner, teacher, technology officer, block and case maker)? Give summary @ -I spoke with Dr. Lovell and he agreed to admit the patient admit the patient wrote admitting orders Was smoking cessation discussed for >3mins.? @ -No Was critical care preformed (if so, how long)? @ -No Were there social determinants of health that impacted care today? How? (Homelessness, low income, unemployed, alcoholism, drug addiction, transportation, low edu. Level, literacy, decrease access to med. care, usp, rehab)? @ -No Was there de-escalation of care discussed even if they declined (Discuss DNR or withdrawal of care, Hospice)? DNR status @ -No What co-morbidities impacted this encounter? (DM, HTN, Smoking, COPD, CAD, C ancer, CVA, ARF, Chemo, Hep., AIDS, mental health diagnosis, sleep apnea, morbid obesity)? @ -None Was patient admitted / discharged? Hospital course, mention meds given and route, prescriptions, significant lab abnormalities, going to OR and other pertinent info. @ -Patient will be admitted for acute cholecystitis. Patient was given Dilaudid and Zofran for pain and nausea. Patient was also given Zosyn for the cholecystitis. Undiagnosed new problem with uncertain prognosis? @ -No Drug Therapy requiring intensive monitoring for toxicity (Heparin, Nitro, Insulin, Cardizem)? @ -No Were any procedures done? @ -No Diagnosis/symptom? @ -Acute cholecystitis Acute, or Chronic, or Acute on Chronic? @ -Acute Uncomplicated (without systemic symptoms) or Complicated (systemic symptoms)? @ -Complicated Side effects of treatment? @ -No Exacerbation, Progression, or Severe Exacerbation? @ -No Poses a threat to life or bodily function? How? (Chest pain, [place], [place], pneumonia, PE, COPD, DKA, ARF, appy, cholecystitis, CVA, Diverticulitis, Homicidal, Suicidal, threat to staff... and all critical care pts) @ -Yes the patient could become septic and cause endorgan dysfunction Disposition Clinical Impression: Acute cholecystitis Disposition: ADMITTED IP TO THIS HOSP Referrals: Ppao Noland MD [Primary Care Provider] - 1-2 days Time of Disposition: 14:47
[2023-12-25] MEDS ORDERED: HYDROmorphone 0.5 MG/0.5 ML SYRINGE IVP PRN (14:53)
[2023-12-25] MEDS: HYDROmorphone 0.5 MG/0.5 ML SYRINGE IVP STA (15:26)
[2023-12-25] MEDS: ONDANSETRON 4 MG/2 ML VIAL IVP STA (15:27)
[2023-12-25] MEDS: LEVOFLOXACIN 750MG-D5W PMX 750 MG in DEXTROSE/WATER 1 150ML.BAG IVPB ONE (15:27)
[2023-12-25] MEDS: SODIUM CHLORIDE 0.9% 1,000 ML IV ONE (15:29)
[2023-12-25] MEDS ORDERED: PIPERACILLIN-TAZOBACTAM 3.375 GM in SODIUM CHLORIDE 0.9% 100 ML IVPB SCH (16:00)
[2023-12-25] MEDS: HYDROmorphone 1 MG/ML 1 ML SYRINGE IVP PRN (16:52)
--- NOTE | 2023-12-25 18:03 | P.CON ---
Consult Note - . Consult date: 12/25/23 Assessment/Plan:: This is a 68-year-old female who presents to the emergency department complaining of 5 hours of right upper quadrant abdominal pain. Patient went to [facility] where they diagnosed her with acute cholecystitis. Patient did have a CAT scan and ultrasound there which apparently showed cholecystitis. However patient states she had a previous cholecystectomy here at [facility]. The patient states that the pain in the right upper quadrant radiates to her back and it made her nauseous. Review of Systems ROS Statement: Those systems with pertinent positive or pertinent negative responses have been documented in the HPI. ROS Other: All systems not noted in ROS Statement are negative. Past Medical History Past Medical History: No Reported History History of Any Multi-Drug Resistant Organisms: None Reported Past Surgical History: Bariatric Surgery, Cholecystectomy Additional Past Surgical History / Comment(s): EGD, Mitzi en Y, abdominoplasty, bilateral breast augmentations/implants with difficulty healing/additional surgery to repair, bilateral arm plastic surgery, L foot bunionectomy, L arm fracture with plate Past Anesthesia/Blood Transfusion Reactions: Motion Sickness Additional Past Anesthesia/Blood Transfusion Reaction / Comment(s): Pt has clausterphobia. Past Psychological History: Depression Smoking Status: Never smoker Past Alcohol Use History: None Reported Past Drug Use History: None Reported - Past Family History Father Family Medical History: Cancer Additional Family Medical History / Comment(s): Father from [place] lymphoma Mother Family Medical History: Dementia, Diabetes Mellitus Additional Family Medical History / Comment(s): Mother is living General Exam - General Exam Comments Initial Comments: GENERAL: Patient is well-developed and well-nourished. Patient is nontoxic and well- hydrated and is in mild distress. ENT: Neck is soft and supple. No significant lymphadenopathy is noted. Oropharynx is clear. Moist mucous membranes. Neck has full range of motion without eliciting any pain. EYES: The sclera were anicteric and conjunctiva were pink and moist. Extraocular movements were intact and pupils were equal round and reactive to light. Eyelids were unremarkable. PULMONARY: Unlabored respirations. Good breath sounds bilaterally. No audible rales rhonchi or wheezing was noted. CARDIOVASCULAR: There is a regular rate and rhythm without any murmurs gallops or rubs. ABDOMEN: Soft and nontender with normal bowel sounds. SKIN: Skin is clear with no lesions or rashes and otherwise unremarkable. NEUROLOGIC: Patient is alert and oriented x3. Cranial nerves II through XII are grossly intact. Motor and sensory are also intact. Normal speech, volume and content. Symmetrical smile. MUSCULOSKELETAL: Normal extremities with adequate strength and full range of motion. LYMPHATICS: No significant lymphadenopathy is noted PSYCHIATRIC: Normal psychiatric evaluation. 68 year old female presenting from outside facility for Acute Cholecystitis. Patient states she has a history of Cholecystectomy -CLD -HIDA scan ordered to evaluate for Gallbladder and Gallbladder Disease -Abx -Pain and Nausea Control -Further recs to follow Giancarlo Lovell [facility] [phone]
[2023-12-25 20:31] VITALS: RESP 16
[2023-12-25] MEDS: ONDANSETRON 4 MG/2 ML VIAL IVP PRN (21:27)
[2023-12-26 01:30] VITALS: BP 97/66; PULSE 84; TEMP 98.5
[2023-12-26 06:31] LABS: Basophils % (A) 0 %; Eosinophils % (A) 0 %; HCT 38.8 % (34.0-46.0); HGB 12.9 gm/dL (11.4-16.0); Lymphocytes # (A) 0.9 k/uL (1.0-4.8); Lymphocytes % (A) 11 %; MCH 31.9 pg (25.0-35.0); MCHC 33.3 g/dL (31.0-37.0); MCV 95.7 fL (80.0-100.0); Mean Platelet Volume 8.2; Monocytes # (A) 0.5 k/uL (0-1.0); Monocytes % (A) 6 %; Neutrophils # (A) 6.5 k/uL (1.3-7.7); Neutrophils % (A) 82 %; Platelet Count 190 k/uL (150-450); RBC 4.06 m/uL (3.80-5.40); RDW 14.1 % (11.5-15.5); WBC 7.9 k/uL (3.8-10.6)
[2023-12-26 06:36] LABS: African American GFR (CKD) >90 (>60 ml/min/1.73 sqM); Albumin 2.5 g/dL (3.5-5.0); Alkaline Phosphatase 451 U/L (38-126); Anion Gap 1 mmol/L; Bilirubin, Conjugated 0.8 mg/dL (0.0-0.3); Bilirubin, Delta 1.1 mg/dL (0.0-0.2); Bilirubin,Unconjugated 0.5 mg/dL (0.0-1.1); Blood Urea Nitrogen 9 mg/dL (7-17); Calcium 8.4 mg/dL (8.4-10.2); Carbon Dioxide 27 mmol/L (22-30); Chloride 105 mmol/L (98-107); Glucose 83 mg/dL (74-99); Non-African American GFR(CKD) >90 (>60 ml/min/1.73 sqM); Potassium 3.9 mmol/L (3.5-5.1); Sodium 133 mmol/L (137-145); Total Bilirubin 2.4 mg/dL (0.2-1.3); Total Protein 4.6 g/dL (6.3-8.2)
[2023-12-26 06:58] LABS: ALT 1145 U/L (4-34)
[2023-12-26 07:38] LABS: AST 1460 U/L (14-36)
--- NOTE | 2023-12-26 08:43 | NM ---
EXAMINATION TYPE: NM hepatobiliary wo EF DATE OF EXAM: 12/26/2023 8:33 AM COMPARISON: CT abdomen pelvis most recent from 12/25/2023 CLINICAL INDICATION:Female, 68 years old with history of Cholecystitis; TECHNIQUE: The patient was given 5.1 mCi of Technetium 99m-Mebrofenin as a radiotracer and multiple scintigraphic images were obtained of the abdomen. FINDINGS: Normal uptake of radiotracer was identified within the liver with excretion into the hepatic and comm on biliary ducts within 10 minutes. There was normal progressive washout of the liver over the course of the study. small bowel activity was identified at 12 minutes. The gallbladder is surgically absent and there is no evidence for biliary leak at 15 minutes. IMPRESSION: No evidence for biliary leak. [facility] Shelton Aponte, , 12/26/2023 8:41 AM
--- NOTE | 2023-12-26 13:29 | P.DS ---
Providers Date of admission: 12/25/23 14:54 Expected date of discharge: 12/26/23 Attending physician: Giancarlo Lovell DO Primary care physician: Papo Noland [facility] Hospital Course: Discharge diagnosis 1. Right upper quadrant abdominal pain with history of cholecystectomy. HIDA scan negative for bile leak. Pain possibly musculoskeletal. Hospital course This is a 68-year-old female who presented the hospital with complaints of right upper quadrant abdominal pain. She has a past medical history of a cholecystectomy. She was a transfer from [facility] where she apparently had been diagnosed with acute cholecystitis and had a CAT scan that there that had showed cholecystitis. HIDA scan completed that showed no evidence for biliary leak and the gallbladder is surgically absent. Patient reports her pain has improved. She is tolerating diet. She is afebrile. She is stable for discharge. Please refer to chart for any further details. Physician Territory Sales Consultant note has been reviewed by physician. Signing provider agrees with the documented findings, assessment, and plan of care. Patient Condition at Discharge: Stable Plan - Discharge Summary Discharge Rx Participant: No New Discharge Prescriptions: Continue buPROPion XL [Wellbutrin XL] 150 mg PO DAILY buPROPion HCL [Wellbutrin XL] 300 mg PO DAILY ALPRAZolam [Xanax] 0.25 mg PO HS PRN PRN Reason: Anxiety Melatonin 6 mg PO HS PRN PRN Reason: Insomnia Discharge Medication List buPROPion HCL [Wellbutrin XL] 300 mg PO DAILY 06/03/20 [History] buPROPion XL [Wellbutrin XL] 150 mg PO DAILY 06/03/20 [History] ALPRAZolam [Xanax] 0.25 mg PO HS PRN 12/25/23 [History] Melatonin 6 mg PO HS PRN 12/25/23 [History] Follow up Appointment(s)/Referral(s): Papo Noland MD [Primary Care Provider] - 1-2 days Discharge Disposition: HOME SELF-CARE
[2023-12-26] MEDS ORDERED: LEVOFLOXACIN 750MG-D5W PMX 750 MG in DEXTROSE/WATER 1 150ML.BAG IVPB SCH (16:00)
== END 2023-12-26 13:56 | disposition home or self-care (01) ==
LOC: SUPCPDRO 12:49 → EC 12:49 → 1SOBS 14:54
PROVIDERS: ADMIT Surgery; ATTEND Surgery
DX: R10.11 Right upper quadrant pain (principal); M54.9 Dorsalgia, unspecified; R11.0 Nausea; Z79.899 Other long term (current) drug therapy; Z88.0 Allergy status to penicillin; Z91.011 Allergy to milk products; Z90.49 Acquired absence of other specified parts of digestive tract
CPT/HCPCS: 96361; 96366; 96376; 96365; 96375; 99285; 80048; 80076; 85025; 78226; G0378 ×2; A9537; J2405; J1171 ×2; J1956